=== PATIENT | female | born 1995 | race Hispanic/Latino ===

== ENCOUNTER 2018-09-23 21:19 | Outpatient (CLI) | payer BC, MEDICAID ==
[2018-09-23] MEDS ORDERED: LACTATED RINGERS 500 ML IV ONE (21:44)
[2018-09-23 21:52] VITALS: BP 124/69
== END 2018-09-23 23:05 | disposition home or self-care (01) ==
LOC: TRG 21:19
PROVIDERS: ATTEND Obstetrics & Gynecology
DX: O46.93 Antepartum hemorrhage, unspecified, third trimester (principal); Z3A.35 35 weeks gestation of pregnancy
CPT/HCPCS: 59025

== ENCOUNTER 2018-09-29 23:35 | Outpatient (CLI) | payer MEDICAID ==
[2018-09-30] MEDS ORDERED: LACTATED RINGERS 1,000 ML ONE (04:56)
[2018-09-30] MEDS ORDERED: STADOL IV PRN (05:32)
[2018-09-30] MEDS ORDERED: XYLOCAINE 2% INFILTRATI ONE (05:32)
[2018-09-30] MEDS ORDERED: BRETHINE SUB-Q PRN (05:32)
[2018-09-30] MEDS ORDERED: BRETHINE IVP PRN (05:32)
[2018-09-30] MEDS ORDERED: MINERAL OIL PO PRN (05:32)
[2018-09-30] MEDS ORDERED: LACTATED RINGERS 1,000 ML IV SCH (06:00)
[2018-09-30] MEDS ORDERED: PITOCin/NS 20 UNIT/1000ML DRIP 20 UNITS/1,000 ML BAG IV SCH (06:00)
[2018-09-30] MEDS ORDERED: PITOCin/NS 30 UNIT/500ML 30 UNITS/500 ML BAG IV SCH (06:00)
[2018-09-30 06:09] LABS: Hematocrit 36.2 % (30.3-42.9); Hemoglobin 12.3 gm/dl (10.1-14.3); Mean Corpuscular HGB Conc 34 % (30-34); Mean Corpuscular Volume 92 fl (79-97); Platelet Count 220 K/mm3 (140-440); Red Blood Count 3.93 M/mm3 (3.65-5.03); Red Cell Distribution Width 12.9 % (13.2-15.2)
[2018-09-30 07:59] VITALS: BP 115/72
[2018-09-30] MEDS ORDERED: PROCARDIA*For Tocolysis only PO ONE (08:15)
== END 2018-09-30 08:15 | disposition home or self-care (01) ==
LOC: TRG 23:35
PROVIDERS: ATTEND Obstetrics & Gynecology
DX: O47.03 False labor before 37 completed weeks of gestation, third trimester (principal); Z3A.36 36 weeks gestation of pregnancy
CPT/HCPCS: 36415; 59025; 85027; 86592; 86850; 86900; 86901; 96360; J7120

== ENCOUNTER 2018-10-09 05:50 | Outpatient (CLI) | payer MEDICAID | END 2018-10-09 07:41 | disposition home or self-care (01) | LOC: TRG 05:50 ==

== ENCOUNTER 2018-10-21 13:57 | Inpatient (IN) | payer BC, MEDICAID ==
[2018-10-21] MEDS ORDERED: LACTATED RINGERS 1,000 ML ONE (14:39)
[2018-10-21 15:33] LABS: Hematocrit 36.3 % (30.3-42.9); Hemoglobin 12.6 gm/dl (10.1-14.3); Mean Corpuscular HGB Conc 35 % (30-34); Mean Corpuscular Volume 92 fl (79-97); Platelet Count 199 K/mm3 (140-440); Red Blood Count 3.94 M/mm3 (3.65-5.03); Red Cell Distribution Width 13.5 % (13.2-15.2)
[2018-10-21] MEDS ORDERED: MINERAL OIL PO PRN (15:48)
[2018-10-21] MEDS ORDERED: SUBLIMAZE IV PRN (15:48)
[2018-10-21] MEDS ORDERED: STADOL IV PRN (15:48)
[2018-10-21] MEDS ORDERED: BRETHINE IVP PRN (15:48)
[2018-10-21] MEDS ORDERED: BRETHINE SUB-Q PRN (15:48)
--- NOTE | 2018-10-21 15:55 | Anesthesia Consultation ---
Anesthesia Consult and Med Hx Date of service: 10/21/18 - Airway ROM Head & Neck: Adequate Mental/Hyoid Distance: Adequate Mallampati Class: Class I Intubation Access Assessment: Good - Pulmonary Exam CTA: Yes - Cardiac Exam Cardiac Exam: RRR - Pre-Operative Health Status ASA Pre-Surgery Classification: ASA2 Proposed Anesthetic Plan: Epidural - Pulmonary Hx Smoking: No Hx Asthma: No Hx Respiratory Symptoms: No SOB: No COPD: No Home Oxygen Therapy: No Hx Pneumonia: No Hx Sleep Apnea: No - Cardiovascular System Hx Hypertension: No Hx Coronary Artery Disease: No Hx Heart Attack/AMI: No Hx Angina: No Hx Percutaneous Transluminal Coronary Angioplasty (PTCA): No Hx Cardia Arrhythmia: No Hx Pacemaker: No Hx Internal Defibrillator: No Hx Valvular Heart Disease: No Hx Heart Murmur: No Hx Peripheral Vascular Disease: No - Central Nervous System Hx Seizures: No CVA: No Hx Back Pain: No Hx Psychiatric Problems: No - Gastrointestinal Hx Ulcer: No Hx Gastroesophageal Reflux Disease: No - Endocrine Hx Renal Disease: No Hx End Stage Renal Disease: No Hx Cirrhosis: No Hx Liver Disease: No Hx Insulin Dependent Diabetes: No Hx Thyroid Disease: No Hx Hypothyroidism: No Hx Hyperthyroidism: No - Hematic Hx Anemia: No Hx Sickle Cell Disease: No - Other Systems Hx Alcohol Use: No Hx Substance Use: No Hx Cancer: No Hx Obesity: No
[2018-10-21] MEDS ORDERED: LACTATED RINGERS 1,000 ML IV SCH (16:00)
[2018-10-21] MEDS ORDERED: PITOCin/NS 30 UNIT/500ML 30 UNITS/500 ML BAG IV SCH ×2 (16:00)
[2018-10-21] MEDS ORDERED: PITOCin/NS 20 UNIT/1000ML DRIP 20 UNITS/1,000 ML BAG IV SCH (16:00)
[2018-10-21] MEDS ORDERED: XYLOCAINE 2% INFILTRATI ONE (16:48)
[2018-10-21] MEDS ORDERED: AMPICILLIN/NS 2 GM/100 ML 2 GM/100 ML BAG IV ONE (17:00)
[2018-10-21] MEDS ORDERED: AMPICILLIN/NS 1 GM/50 ML 1 GM/50 ML BAG IV SCH (18:00)
--- NOTE | 2018-10-21 18:26 | History and Physical Report ---
History of Present Illness Date of examination: 10/21/18 Date of admission: 10/21/18 13:58 Chief complaint: My water broke History of present illness: Patient is a 23 year old who presents with SROM at 39.5 weeks. Pt has been 4cm dilated since 35 weeks. Her course has been otherwise uncomplicated. Past History Past Medical History: no pertinent history Past Surgical History: no surgical history Family/Genetic History: none Social history: - Obstetrical History Expected Date of Delivery: 10/21/18 Actual Gestation: 40 Week(s) 0 Day(s) : 2 Para: 1 Number of Living Children: 1 Medications and Allergies Allergies Allergy/AdvReac Type Severity Reaction Status Date / Time No Known Allergies Allergy Verified 10/21/18 14:17 Home Medications Medication Instructions Recorded Confirmed Last Taken Type No Known Home Medications [No 09/29/18 09/29/18 Unknown History Reported Home Medications] Active Meds: Active Medications Butorphanol Tartrate (Stadol) 2 mg IV Q2H PRN PRN Reason: Pain , Severe (7-10) Ephedrine Sulfate (Ephedrine Sulfate) 10 mg IV Q2M PRN PRN Reason: Hypotension Fentanyl (Sublimaze) 100 mcg IV Q2H PRN PRN Reason: Labor Pain Lactated Ringer's (Lactated Ringers) 1,000 mls @ 125 mls/hr IV DIRECT ESTELA Last Admin: 10/21/18 16:25 Dose: 125 mls/hr Documented by: Oxytocin/Sodium Chloride (Pitocin/Ns 20 Unit/1000ml Drip) 20 units in 1,000 mls @ 125 mls/hr IV DIRECT ESTELA Oxytocin/Sodium Chloride (Pitocin/Ns 30 Unit/500ml) 30 units in 500 mls @ 1 mls/hr IV TITR ESTELA; Protocol Last Admin: 10/21/18 16:44 Dose: 1 milliunits/min, 1 mls/hr Documented by: Oxytocin/Sodium Chloride (Pitocin/Ns 30 Unit/500ml) 30 units in 500 mls @ 4 mls/hr IV TITR ESTELA; Protocol Ampicillin Sodium (Ampicillin/Ns 1 Gm/50 Ml) 1 gm in 50 mls @ 100 mls/hr IV Q4HR ESTELA; Protocol Mineral Oil (Mineral Oil) 30 ml PO QHS PRN PRN Reason: Constipation Terbutaline Sulfate (Brethine) 0.25 mg SUB-Q ONCE PRN PRN Reason: Hyperstimulation/Hypertonicity Terbutaline Sulfate (Brethine) 0.25 mg IVP ONCE PRN PRN Reason: Hyperstimulation/Hypertonicity Review of Systems All systems: negative Genitourinary: leakage of fluid, contractions - Vital Signs Vital signs: Vital Signs Temp Pulse Resp BP 98.9 F 117 H 20 129/84 10/21/18 14:19 10/21/18 14:19 10/21/18 14:19 10/21/18 14:19 Temp Pulse Resp BP Pulse Ox 98.6 F 81 20 136/83 10/21/18 17:15 10/21/18 18:00 10/21/18 16:30 10/21/18 18:00 - Physical Exam Breasts: Cardiovascular: Regular rate, Normal S1, Normal S2 Lungs: Positive: Clear to auscultation, Normal air movement Abdomen: Positive: normal appearance, soft, normal bowel sounds. Negative: distention, tenderness Vulva: both: normal Vagina: Positive: normal moisture. Negative: discharge Cervix: Negative: lesion, discharge Uterus: Positive: normal size, normal contour Adnexa: both: normal Anus/Rectum: Positive: normal perianal skin, heme negative. Negative: rectal mass, hemorrhoids Extremities: Deep Tendon Reflex Grade: Normal +2 - Obstetrical FHR: auscultation normal Cervical Dilatation: 4 Cervical Effacement Percentage: 80 station: -1 Uterine Contraction Pattern: Irregular Uterine Contraction Intensity: Moderate Results Result Diagrams: 10/21/18 15:00 Abnormal lab results 10/21/18 Range/Units 15:00 MCHC 35 H (30-34) % All other labs normal. Assessment and Plan IUP at 39.5 weeks with SROM. Admit to L&D. Augment with pitocin. Anticipate .
--- NOTE | 2018-10-21 18:35 | Procedure Note ---
OB Delivery Note - Delivery Date of Delivery: 10/21/18 Surgeon: ELIA HOPKINS Estimated blood loss: 200cc - Vaginal Delivery presentation: vertex Delivery position: OA Intrapartum events: precipitous labor- <3hr Delivery augmentation: rupture of membranes Delivery monitor: external FHT, external uterine Route of delivery: Delivery placenta: spontaneous Delivery cord: 3 umbilical vessels Episiotomy: none Delivery laceration: none Anesthesia: none Delivery comments: Viable male delivered over intact perineum precipitously in the bed. Aramis ght 7 pounds 9 ounces. Apgars 8,9. Placenta delivered spontaneously and intact with 3vc. No lacerations. Excellent hemostasis. Pt tolerated procedure well. - Infant A at 1 minute: 8 at 5 minutes: 9 Gender: Male
[2018-10-21] MEDS ORDERED: PITOCin/NS 20 UNIT/1000ML DRIP 20,000 MILLIUNITS/1,000 ML BAG IV ONE (20:45)
[2018-10-21] MEDS ORDERED: BENADRYL PO PRN (20:55)
[2018-10-21] MEDS ORDERED: NORCO 5/325 PO PRN (20:55)
[2018-10-21] MEDS ORDERED: PHENERGAN PO PRN (20:55)
[2018-10-21] MEDS ORDERED: TUCKS PAD TP PRN (20:55)
[2018-10-21] MEDS ORDERED: TYLENOL PO PRN (20:55)
[2018-10-21] MEDS: IBUPROFEN PO SCH (20:55)
[2018-10-21] MEDS ORDERED: PHENERGAN PR PRN (20:55)
[2018-10-21] MEDS ORDERED: MILK OF MAGNESIA PO PRN (20:55)
[2018-10-21] MEDS ORDERED: SODIUM CHLORIDE FLUSH SYRINGE 10 ML IV PRN (20:55)
[2018-10-21] MEDS ORDERED: LANSINOH TP PRN (20:55)
[2018-10-21] MEDS ORDERED: DULCOLAX PR PRN (20:55)
[2018-10-21] MEDS ORDERED: ZOFRAN IV PRN (20:55)
[2018-10-22] MEDS: IBUPROFEN PO SCH ×5 (06:21→23:44)
[2018-10-22 07:50] LABS: Hematocrit 33.8 % (30.3-42.9); Hemoglobin 11.5 gm/dl (10.1-14.3)
[2018-10-22] MEDS: PRENATAL VITAMIN PO SCH (09:22)
--- NOTE | 2018-10-22 22:39 | Progress Note ---
Assessment and Plan PPD 1 s/p . Doing well. Plan for discharge in the am. Subjective - Subjective Date of service: 10/22/18 Interval history: Patient is a 23 year old who presents with SROM at 39.5 weeks. Pt has been 4cm dilated since 35 weeks. Her course has been otherwise uncomplicated. Patient reports: appetite normal, voiding normally, pain well controlled, ambulating normally [place]: doing well Objective - Vital Signs Latest vital signs: Vital Signs Temp Pulse Resp BP BP Pulse Ox 10/22/18 20:02 18 10/22/18 16:31 98.8 F 79 18 111/68 97 10/22/18 11:51 98.1 F 111 H 18 127/76 94 10/22/18 08:01 98.1 F 88 18 112/64 97 10/22/18 03:55 98.3 F 78 18 111/75 98 10/22/18 00:45 97.6 F 84 18 129/82 97 Intake and Output 10/22/18 10/22/18 10/22/18 06:59 14:59 22:59 Intake Total 240 600 840 Output Total 700 Balance -460 600 840 Intake: Oral 240 480 Intake, Free Water 240 360 360 Output: Urine 700 Void 700 Other: Total, Intake Amount 240 480 Total, Output Amount 400 # Voids Void 2 2 - Exam Breasts: Present: deferred Cardiovascular: Present: Regular rate, Normal S1, Normal S2 Lungs: Present: Clear to auscultation, Normal air movement Abdomen: Present: normal appearance, soft, normal bowel sounds Uterus: Present: normal, firm Extremities: Present: normal
--- NOTE | 2018-10-22 22:43 | Discharge Summary ---
Providers - Providers Date of Admission: 10/21/18 13:58 Date of discharge: 10/23/18 Attending physician: ELIA HOPKINS Primary care physician: ELIA HOPKINS Hospitalization Reason for admission: active labor, rupture of membranes Delivery: Episiotomy: none Discharge diagnosis: IUP at term delivered baby: male Hospital course: unremarkable Condition at discharge: Good Disposition: DC-01 TO HOME OR SELFCARE Plan - Discharge Medications Prescriptions: Ibuprofen [Motrin] 800 mg PO Q8HR PRN #40 tablet PRN Reason: Pain, Moderate (4-6) - Provider Discharge Summary Activity: routine, no sex for 6 weeks, no heavy lifting 4 weeks, no strenuous exercise Diet: routine Instructions: routine Additional instructions: [] Smoking cessation referral if applicable(refer to patient education folder for contact #) [] Refer to [facility] Booklet Call your doctor immediately for: * Fever > 100.5 * Heavy vaginal bleeding ( >1 pad per hour) * Severe persistent headache * Shortness of breath * Reddened, hot, painful area to leg or breast * Drainage or odor from incision. * Keep incision clean and dry at all times and follow doctor's instructions regarding bathing/showering - Follow up plan Follow up: ELIA HOPKINS MD [Primary Care Provider] - 6 Weeks
[2018-10-22] MEDS: CLARITIN PO SCH (23:43)
[2018-10-23] MEDS: IBUPROFEN PO SCH ×2 (05:39→12:21)
[2018-10-23] MEDS: PRENATAL VITAMIN PO SCH (10:21)
[2018-10-23] MEDS: CLARITIN PO SCH (10:21)
[2018-10-23 17:34] VITALS: BP 131/85
== END 2018-10-23 18:40 | disposition home or self-care (01) | DRG 775 ==
LOC: TRG 13:57 → LD 13:58 → TRG 14:39 → OB 20:38
PROVIDERS: ADMIT Obstetrics & Gynecology; ATTEND Obstetrics & Gynecology
PROC: 10E0XZZ Delivery of Products of Conception, External Approach (ICD-10-PCS; principal; 2018-10-21)
DX: O62.3 Precipitate labor (principal); Z3A.39 39 weeks gestation of pregnancy; Z37.0 Single live birth
CPT/HCPCS: 36415; 85014; 85018; 85027; 86592; 86850; 86900; 86901; G0378; A6250; J0290; J0595; J2590; J7120